=== PATIENT | female | born 1995 | race Caucasian/White ===

== ENCOUNTER 2017-03-20 03:25 | Outpatient (CLI) | payer BC ==
[~2017-03-20] VITALS: Ht 157.5 cm; Wt 61.1 kg
[~2017-03-20 03:25] MED LIST: CALC100C; FERR27TA; PREN1TAB12
[2017-03-20 03:45] VITALS: BP 120/63; PULSE 99; RESP 18; Ht 157.5 cm; Wt 61.1 kg
[2017-03-20 04:14] LABS: ADD UMIC YES; UR ASCORBIC ACID 40 mg/dL (NEGATIVE); UR BACTERIA FEW /HPF (NONE SEEN); UR BILIRUBIN (Dip) NEGATIVE (NEGATIVE); UR BLOOD (Dip) NEGATIVE (NEGATIVE); UR CLARITY SLIGHTLY CLOUDY (CLEAR); UR COLOR YELLOW (YELLOW); UR GLUCOSE (Dip) NEGATIVE (NEGATIVE); UR KETONES (Dip) 2+ mg/dL (NEGATIVE); UR LEUKOCYTE ESTERASE (Dip) TRACE Leu/ul (NEGATIVE); UR MUCUS FEW /HPF (NONE SEEN); UR NITRITE (Dip) NEGATIVE (NEGATIVE); UR RBC 0 /HPF (0-5); UR SQUAMOUS EPITHELIAL CELL FEW /HPF (FEW); UR TOTAL PROTEIN (Dip) NEGATIVE (NEGATIVE); UR UROBILINOGEN (Dip) NEGATIVE (NEGATIVE)
[2017-03-20] MEDS ORDERED: ZOLPIDEM 5 MG TAB PO PRN (04:30)
[2017-03-20] MEDS ORDERED: LACTATED RINGER'S 1,000 ML IV SCH (05:00)
[2017-03-20] MEDS ORDERED: LACTATED RINGER'S 1,000 ML IV ONE (05:00)
[2017-03-20] MEDS ORDERED: ACETAMINOPHEN 325 MG TAB PO PRN (05:00)
--- NOTE | 2017-03-20 05:01 | RADRPT ---
PROCEDURE: ULTRASOUND BIOPHYSICAL PROFILE CLINICAL INDICATION: 21-year-old female in labor for viability. TECHNIQUE: Multiple sonographic images were obtained in order to perform a biophysical profile The images were reviewed on a PACS workstation. COMPARISON: None. FINDINGS: The cervix appears closed with a length of 2.7 cm measured transvaginally. There is a single viable intrauterine gestation. There is a vertex presentation. Cardiac activity is present at 137 beats pe r minute. The placenta is posterior. The results of the biophysical profile are as follows: breathing movement = 2/2 Gross body movement = 2/2 tone = 2/2 Qualitative amniotic fluid volume = 2/2 Amniotic fluid index equals 11.8 cm. This yields a biophysical profile score of 8/8. IMPRESSION: Biophysical profile score is 8/8. .Miguel Saravia MD, Date Time Electronically viewed and signed by .Miguel Saravia MD, on 03/20/2017 05:01 .[place]/
--- NOTE | 2017-03-20 05:05 | RADRPT ---
PROCEDURE: ULTRASOUND OBSTETRICAL CLINICAL INDICATION: 21-year-old female in labor for size and date determination. TECHNIQUE: Multiple sonographic images of the pelvis were obtained. The images were reviewed on a PACS workstation. COMPARISON: Ultrasound biophysical profile obtained concurrently. FINDINGS: There is a single viable intrauterine gestation. Cardiac activity is present with 137 beats per min ella. There is a vertex presentation. Measurements were made in order to determine age. The res ults are as follows: BPD = 7.60 cm, HC = 22.08 cm, AC = 28.54 cm, FL = 6.16 cm. This yields and estimated gestational ag e of approximately 31 weeks 3 days. The estimated date of delivery is May 19, 2017. The EFW = 1884 +/- 283 g (4 lb 2 oz). The GP is 53%. The placenta is posterior. There is no evidence for an abruption or placenta previa. IMPRESSION: 1. Single viable intrauterine gestation of approximately 31 weeks 3 days with vertex presentation. The estimated date of delivery is May 19, 2017. 2. The estimated weight is 1884 +/- 283 g (4 lb 2 oz). The GP is 53%. .Miguel Saravia MD, Date Time Electronically viewed and signed by .Miguel Saravia MD, MD on 03/20/2017 05:05 .[place]/
[2017-03-20 05:24] LABS: BASOPHILS % 0.2 % (0.0-2.0); EOSINOPHILS % 0.1 % (0.0-7.0); HEMATOCRIT 28.5 % (37.0-47.0); HEMOGLOBIN 9.1 g/dl (12.0-16.0); LYMPHOCYTES # 2.2 10^3/ul (0.8-2.9); LYMPHOCYTES % 19.2 % (15.0-51.0); MEAN CORPUSCULAR HGB CONC 31.9 g/dl (32.0-37.0); MEAN CORPUSCULAR VOLUME 87.7 fl (82.0-101.0); MEAN PLATELET VOLUME 10.2 fl (7.4-10.4); MONOCYTES % 8.6 % (0.0-11.0); NEUTROPHIL # 8.2 10^3/ul (1.6-7.5); NEUTROPHILS % 71.5 % (39.0-77.0); PLATELET COUNT 246 10^3/UL (140-415); RED BLOOD COUNT 3.25 10^6/ul (4.20-5.40); RED CELL DISTRIBUTION WIDTH 13.1 % (11.5-14.5); WHITE BLOOD COUNT 11.5 10^3/ul (4.8-10.8)
[2017-03-20 07:48] LABS: BARBITURATES Negative (NEGATIVE); BENZODIAZEPINES Negative (NEGATIVE); CANNABINOIDS Negative (NEGATIVE); COCAINE Negative (NEGATIVE); OPIATES Negative (NEGATIVE)
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
--- NOTE | 2017-03-20 18:49 | QN ---
Documentation Comment iup 31 weeks co oabd pain vss exan wnl us and labs wnl a/p iup 31 weeks false labor dc home CAMILLE JARAMILLO MD Mar 20, 2017 18:49
== END 2017-03-20 11:00 | disposition home or self-care (01) ==
LOC: L-D 03:25 → OBT 03:25
PROVIDERS: ATTEND Obstetrics & Gynecology
DX: O26.893 Other specified pregnancy related conditions, third trimester (principal); M54.5 Low back pain; Z3A.31 31 weeks gestation of pregnancy
CPT/HCPCS: 36415; 76815; 76817; 76818; 80307; 81001; 85025; 87086; 96360; 96361; J7120; Z7500; Z7610; G0463

== ENCOUNTER 2017-05-10 00:44 | Inpatient (IN) | payer BC ==
[~2017-05-10] VITALS: Ht 157.5 cm; Wt 61.6 kg
[2017-05-10] MEDS ORDERED: LACTATED RINGER'S 1,000 ML IV SCH (01:15)
[2017-05-10 01:25] VITALS: Ht 157.5 cm; Wt 61.6 kg
[2017-05-10 01:26] VITALS: BP 125/80; PULSE 85
[2017-05-10] MEDS ORDERED: LIDOCAINE 1% (MPF) 30 ML INJ INJ PRN (01:30)
[2017-05-10] MEDS ORDERED: BUTORPHANOL 2 MG INJ IV PRN (01:30)
[2017-05-10] MEDS ORDERED: METHYLERGONOVINE 0.2 MG INJ IM PRN ×2 (01:30→05:30)
[2017-05-10] MEDS ORDERED: IBUPROFEN 600 MG TAB PO PRN (01:30)
[2017-05-10] MEDS ORDERED: LACTATED RINGER'S 1,000 ML IV PRN (01:30)
[2017-05-10] MEDS ORDERED: OXYTOCIN 30 UNITS/LR 500 ML IV SCH ×3 (01:30)
[2017-05-10] MEDS ORDERED: MISOPROSTOL 200 MCG TAB PR PRN ×2 (01:30→05:30)
[2017-05-10] MEDS ORDERED: OXYTOCIN 30 UNITS/LR 500 ML IV PRN ×2 (01:30→05:30)
[2017-05-10] MEDS ORDERED: CARBOPROST 250 MCG INJ IM PRN ×2 (01:30→05:30)
--- NOTE | 2017-05-10 02:19 | RADRPT ---
PROCEDURE: ULTRASOUND OBSTETRICAL CLINICAL INDICATION: 21-year-old female and labor for size and date determination. TECHNIQUE: Multiple sonographic images of the pelvis were obtained. The images were reviewed on a PACS workstation. COMPARISON: No prior studies are available for comparison. FINDINGS: The cervix is not well visualized . There is a single viable intrauterine gestation. Cardiac activi ty is present with 137 beats per minute. There is a vertex presentation. Measurements were made in o rder to determine age. The results are as follows: BPD = 8.89 cm, HC = 31.98 cm, AC = 34.21 cm, FL = 7.30 cm. This yields and estimated gestational ag e of approximately 36 weeks 6 days. The estimated date of delivery is June 01, 2017. The EFW = 3209 +/- 481 g (7 lb 1 oz). The GP is 32%. The placenta is left lateral. There is no evidence for an abruption or placenta previa. There is a paucity of amniotic fluid however an amniotic fluid index was not obtained. IMPRESSION: 1. Single viable intrauterine gestation of approximately 36 weeks 6 days with vertex presentation. 2. The estimated weight is 3209 +/- 481 g (7 lb 1 oz). The GP is 32%. 3. Subjective decreased amniotic fluid however an amniotic fluid index was not obtained. .Miguel Saravia MD, MD Date Time Electronically viewed and signed by .Miguel Saravia MD, MD on 05/10/2017 02:18 .M/
[2017-05-10 02:36] LABS: BASOPHILS % 0.1 % (0.0-2.0); EOSINOPHILS % 0.1 % (0.0-7.0); HEMATOCRIT 34.3 % (37.0-47.0); HEMOGLOBIN 11.1 g/dl (12.0-16.0); LYMPHOCYTES # 2.5 10^3/ul (0.8-2.9); LYMPHOCYTES % 25.2 % (15.0-51.0); MEAN CORPUSCULAR HEMOGLOBIN 27.1 pg (29.0-33.0); MEAN CORPUSCULAR HGB CONC 32.4 g/dl (32.0-37.0); MEAN CORPUSCULAR VOLUME 83.9 fl (82.0-101.0); MEAN PLATELET VOLUME 11.1 fl (7.4-10.4); MONOCYTE # 0.8 10^3/ul (0.3-0.9); MONOCYTES % 8.5 % (0.0-11.0); NEUTROPHIL # 6.4 10^3/ul (1.6-7.5); NEUTROPHILS % 65.8 % (39.0-77.0); PLATELET COUNT 246 10^3/UL (140-415); RED BLOOD COUNT 4.09 10^6/ul (4.20-5.40); RED CELL DISTRIBUTION WIDTH 15.6 % (11.5-14.5); WHITE BLOOD COUNT 9.8 10^3/ul (4.8-10.8)
[2017-05-10] MEDS ORDERED: morphine 10 MG INJ ONE (02:42)
--- NOTE | 2017-05-10 02:44 | TRIAGE ---
OB Triage Datetime Report Generated by CPN: 05/10/2017 02:43 Datetime: 05/10/2017 02:03 Labor Evaluation Frequency: 2-5 Monitor Mode: External Duration (sec)2399: 60-120 Quality: Moderate Pattern: Normal: <= 5 Contractions in 10 Minutes Resting Tone [place]: Relaxed Heart Rate FHR Baseline Rate: 135 Monitor Mode: External US Variability: Moderate 6-25 bpm Accelerations: 15X15 Decelerations: None Category: Category I Datetime: 05/10/2017 01:09 Maternal Assessment Level of Consciousness: Fully Conscious DTR's/Clonus: DTRs 2+; No Clonus Headache: Denies Blurred Vision: No Respiratory Effort: Unlabored; Regular Rhythm; Equal Expansion Nausea/Vomiting: Denies RUQ Epigastric Pain: Denies Pain Assessment Pain Scale: 4 Pain Presence: Intermittent Pain Type: Contraction Pain Location: Abdomen; Back Pain Goal: 2 Pain Relief Measures: Comfort Measures Vaginal Exam Dilatation (cms): 2.5 Effacement (%): 80 Station: -2 Membrane Status: Ruptured Membranes Rupture Method: Spontaneous Nitrazine: Positive Datetime: 05/10/2017 00:52 Time of Arrival: 05/10/2017 00:44 EGA: 38.6 Arrived By: Wheelchair Arrived From: Emergency Dept Chief Complaint: SROM AT 2345 Movement: Present Contractions: Irregular Time Contractions Began: 05/10/2017 00:20 Rupture of Membranes: Ruptured Vaginal Bleeding: None Vaginal Discharge: Denies Recent Sexual Intercouse: Denies Abdominal Trauma: Not Applicable Patient Complaints: Other Time Provider Notified: 05/10/2017 01:14 Provider Notified: VICKY Initial Plan: MONITOR PT, SVE, EFW Datetime: 03/20/2017 03:50 EGA: 31.4 Datetime: 03/20/2017 03:49 Fall Risk Assessment Fall Score: 0 Fall Risk Score Definition: No Risk: No action required
[2017-05-10 02:57] LABS: INR 0.9; PROTIME 12.1 Sec (12.2-14.2); PT RATIO 0.9
[2017-05-10 02:58] LABS: PARTIAL THROMBOPLASTIN TIME 25.4 Sec (25.0-35.0)
[2017-05-10] MEDS ORDERED: morphine 10 MG INJ IV ONE (03:00)
--- NOTE | 2017-05-10 03:13 | HP ---
Date/Time of Note Date/Time of Note DATE: 05/10/17 TIME: 03:10 OB - History Hx of Present Chief Complaint: SROM and contractions Estimated Due Date: May 18, 2017 : 2 Para: 1 Spontaneous : 0 Therapeutic : 0 Care: Good Care Ultrasounds: Normal mid trimester US Obstetrical Complications: None Medical Complications: None Past Family/Social History * Past Medical, Surgical, Family and Obstetric Histories reviewed from chart. GBS Status: Negative OB Admission Exam Vital Signs Vital Signs Vital Signs Date Time Temp Pulse Resp B/P Pulse Ox O2 Delivery O2 Flow Rate FiO2 05/10/17 01:26 98.7 85 125/80 Room Air Physical Exam HEENT: WNL Heart: Rhythm Normal Lungs: Clear, Equal Abdomen: WNL Extremities: Normal Reflexes: Normal Cervical Dilatation: 3cm Effacement: 50% Station: -1 Membranes: Ruptured Amniotic Fluid: Clear Heart Rate: 120's Accelerations: Accelerations Present Decelerations: No Decelerations Varibility: Moderate OB Assessment/Plan Reason for admission: active labor Plan: Expectant Management JUVENAL GARCIA MD May 10, 2017 03:13
--- NOTE | 2017-05-10 03:16 | LDN ---
Date/Time of Note Date/Time of Note DATE: 05/10/17 TIME: 03:14 Delivery Summary Weeks of Gestation 38 weeks and 6 days Placenta Delivered: Spontaneously Meconium: none Episiotomy: No Perineal laceration: 2 Laceration repair: Second degree perineal and vaginal laceration repaired with 3-0 Vicryl and 3-0 chromic. Anesthesia type: Local Estimated blood loss: 400 Sponge & Needle done & correct: Yes All needle counts correct: Yes Any foreign bodies felt in the: No Problems: Delivery Information Sex Sex: female Apgars 1 Minute: 9 5 Minute: 9 Suctioning Nose & mouth suctioned at krishan: Yes Delee suction performed: No Umbilical Cord Umbilical cord with: 3 Vessels Cord presentations: no nuchal cord Cord Blood was obtained: Yes Mother & Baby Disposition Disposition Mom & Baby to Maternity; Good: Yes JUVENAL GARCIA MD May 10, 2017 03:16
[2017-05-10] MEDS: LACTATED RINGER'S 1,000 ML IV* SCH ×2 (05:01→07:43)
[2017-05-10] MEDS ORDERED: HYDROCODONE/APAP (5/325) TAB PO PRN (05:30)
[2017-05-10] MEDS ORDERED: DIBUCAINE 1% 30 GM OINT PR PRN (05:30)
[2017-05-10] MEDS ORDERED: ACETAMINOPHEN 325 MG TAB PO PRN (05:30)
[2017-05-10 05:45] VITALS: BP 119/78; PULSE 60; PULSE 67; RESP 20
[2017-05-10] MEDS: BENZOCAINE 20% 56 ML SPRAY TOP PRN (06:32)
[2017-05-10] MEDS: WITCH HAZEL/GLYCERIN PAD PR PRN (06:32)
[2017-05-10] MEDS: IBUPROFEN 600 MG TAB PO SCH ×3 (06:32→18:03)
[2017-05-10 07:50] VITALS: BP 113/67; PULSE 76; RESP 16
[2017-05-10] MEDS: SENNA/DOCUSATE NA (8.6MG/50MG) TAB PO SCH ×2 (09:27→21:10)
[2017-05-10 11:45] VITALS: BP 113/67; PULSE 86; RESP 17
[2017-05-10 16:30] VITALS: BP 124/81; PULSE 88; RESP 18
[2017-05-11 00:15] VITALS: BP 112/64; PULSE 88; RESP 17
[2017-05-11] MEDS: IBUPROFEN 600 MG TAB PO SCH ×5 (00:24→23:50)
[2017-05-11 04:00] VITALS: BP 105/59; PULSE 92; RESP 18
[2017-05-11 07:35] VITALS: BP 114/68; PULSE 86; RESP 16
[2017-05-11 09:03] LABS: BASOPHILS % 0.1 % (0.0-2.0); EOSINOPHILS # 0.1 10^3/ul (0.0-0.5); EOSINOPHILS % 0.7 % (0.0-7.0); HEMOGLOBIN 7.1 g/dl (12.0-16.0); LYMPHOCYTES # 2.4 10^3/ul (0.8-2.9); LYMPHOCYTES % 26.2 % (15.0-51.0); MEAN CORPUSCULAR HEMOGLOBIN 27.3 pg (29.0-33.0); MEAN CORPUSCULAR HGB CONC 32.3 g/dl (32.0-37.0); MEAN CORPUSCULAR VOLUME 84.6 fl (82.0-101.0); MEAN PLATELET VOLUME 11.4 fl (7.4-10.4); MONOCYTE # 0.9 10^3/ul (0.3-0.9); MONOCYTES % 9.7 % (0.0-11.0); NEUTROPHIL # 5.7 10^3/ul (1.6-7.5); NEUTROPHILS % 62.7 % (39.0-77.0); PLATELET COUNT 148 10^3/UL (140-415); RED CELL DISTRIBUTION WIDTH 15.8 % (11.5-14.5); WHITE BLOOD COUNT 9.1 10^3/ul (4.8-10.8)
[2017-05-11] MEDS: SENNA/DOCUSATE NA (8.6MG/50MG) TAB PO SCH ×2 (09:23→21:13)
[2017-05-11 15:55] VITALS: BP 99/49; PULSE 96; RESP 16
[2017-05-11] MEDS ORDERED: LANOLIN 7 GM TUBE TOP PRN (18:30)
[2017-05-11 20:00] VITALS: BP 117/55; PULSE 88; RESP 21
[2017-05-12 04:00] VITALS: BP 109/56; PULSE 85; RESP 21
[2017-05-12] MEDS: IBUPROFEN 600 MG TAB PO SCH ×2 (05:52→11:11)
[2017-05-12 07:50] VITALS: BP 104/60; PULSE 89; RESP 16
[2017-05-12] MEDS: SENNA/DOCUSATE NA (8.6MG/50MG) TAB PO SCH (08:45)
[2017-05-12] MEDS ORDERED: DIPHTH/TET/ACEL PERTUSS (ADULT) 0.5 ML VIAL IM* ONE (09:00)
[2017-05-12] MEDS: WITCH HAZEL/GLYCERIN PAD PR PRN (11:12)
[2017-05-12] MEDS: BENZOCAINE 20% 56 ML SPRAY TOP PRN (11:12)
--- NOTE | 2017-05-13 03:14 | PREOPHP ---
DATE OF ADMISSION: 05/10/2017 HISTORY OF PRESENT ILLNESS: This is a 21-year-old lady, 2, para 1, EDC May 18, 2017, 39 weeks' , admitted to labor and delivery area in active labor. She had care in my [place] office and the care was uneventful. PAST PERSONAL HISTORY: No history of diabetes, TB, asthma. ALLERGIES: NONE. SOCIAL HISTORY: Patient does not smoke. She does not drink. She does not take any drugs except her iron and vitamins. GYNECOLOGIC HISTORY: She had menarche at the age of 11, every 28 days interval, 3-4 days' duration, and moderate in amount. FAMILY HISTORY: Noncontributory. OBSTETRIC HISTORY: She is 2, para 1. Her first delivery was in 2009, normal delivery, weighing 6 pounds 2 ounces. REVIEW OF SYSTEMS: CARDIOVASCULAR: No chest pain. RESPIRATORY: No cough. GASTROINTESTINAL: No diarrhea. No vomiting. GENITOURINARY: No dysuria. PHYSICAL EXAMINATION: GENERAL APPEARANCE: Reveals a coherent lady, in no acute distress. VITAL SIGNS: Her blood pressure 120/80, pulse rate 80 per minute, respirations 16 per minute. BREAST/HEART AND LUNGS: Within normal limits. ABDOMEN: Soft. Fundal height 36 cm. heart tones 140 per minute. PELVIC: Exam done by nurse revealed the cervix to be 4-5 cm dilated, 100 percent effaced, station 0, in cephalic presentation, with the bag of water intact. EXTREMITIES: No pedal edema. ADMITTING DIAGNOSIS: 39 weeks' intrauterine , in labor. The patient was planned to be observed for progress of labor. Patient progressed well and the laborist, Dr. Harmon, was requesting to deliver the patient. Dictated By: Cristel Rhodes MD /barbi/amy /Document#: [id number] KUMAR
== END 2017-05-12 12:41 | disposition home or self-care (01) | DRG 775 ==
LOC: OBT 00:44 → L-D 00:46 → OBT 01:14 → PP1 05:17
PROVIDERS: ADMIT Obstetrics & Gynecology; ATTEND Obstetrics & Gynecology
PROC: 10E0XZZ Delivery of Products of Conception, External Approach (ICD-10-PCS; principal; 2017-05-10)
PROC: 0KQM0ZZ Repair Perineum Muscle, Open Approach (ICD-10-PCS; 2017-05-10)
DX: O70.1 Second degree perineal laceration during delivery (principal); Z37.0 Single live birth; Z3A.38 38 weeks gestation of pregnancy
CPT/HCPCS: 76815; 85025; 85610; 85730; 86592; 86900; 86901; 90715; G0463; J0595; J2270; J2590; J7120